=== PATIENT | male | born 1995 | race Caucasian/White ===

== ENCOUNTER 2020-02-15 14:40 | Emergency (ER) | payer OTHER ==
[~2020-02-15] VITALS: Ht 170.2 cm; Wt 77.3 kg
[2020-02-15 14:42] VITALS: BP 137/63
== END 2020-02-15 16:27 | disposition home or self-care (01) ==
LOC: EMS 14:44
DX: Z03.818 Encounter for observation for suspected exposure to other biological agents ruled out (principal); L70.9 Acne, unspecified
CPT/HCPCS: 99283; U0003